=== PATIENT | male | born 1955 | race Caucasian/White ===

== ENCOUNTER → 2017-11-21 | Outpatient (CLI) | payer OTHER ==
--- NOTE | 2017-11-21 10:37 | PCVCIMAG ---
EXAM: AORTOILIAC DUPLEX INDICATION: Abdominal aortic aneurysm. FINDINGS: AORTA: Suprarenal aorta measures maximum diameter of 2.9 cm. There is a fusiform infrarenal aortic aneurysm. The infrarenal aorta measures maximum diameter of 2.6 x 2.9 cm. No aortic stenosis. RIGHT COMMON ILIAC ARTERY: Maximum diameter is 1.1 cm. No significant stenosis. RIGHT EXTERNAL ILIAC ARTERY: No significant stenosis. LEFT COMMON ILIAC ARTERY: Maximum diameter is 1.1 cm. No significant stenosis. LEFT EXTERNAL ILIAC ARTERY: No significant stenosis. IMPRESSION: 2.9 cm infrarenal abdominal aortic aneurysm. No aortoiliac stenosis. LOC:[id number]
== END | disposition home or self-care (01) ==
LOC: PCVCIMAG 15:56
PROVIDERS: ATTEND Internal Medicine Cardiovascular Disease
DX: I71.4 Abdominal aortic aneurysm, without rupture (principal); I73.9 Peripheral vascular disease, unspecified
CPT/HCPCS: 93978

== ENCOUNTER → 2017-12-07 | Outpatient (CLI) | payer OTHER ==
--- NOTE | 2017-12-08 14:33 | PCVCIMAG ---
APPROVED REPORT Study performed: 12/07/2017 11:34:58 Exam: Stress Echocardiogram Indication: CAD Patient Location: Echo lab Stress Nurse: Colleen Katz RN Room #: 2 Status: routine Ht: 6 ft 1 in HR: 73 bpm BP: 126/76 mmHg Rhythm: NSR Medical History Medical History: CAD non obstructive, Diabetes,JAMEL,HCL Cardiac Risk Factors: DM, HTN, Hyperlipidemia, FHX of CAD Previous Cardiac Procedures: none Pretest Chest Pain Characteristics: none Exercise History: Physically active Procedure The patient underwent an Exercise Stress Test using the Favian Protocol. Blood pressure, heart rate, and EKG were monitored. An Echocardiogram was performed by biology specimen technician in four stages in quad fashion. At peak stress, four selected images were obtained and placed side by side with resting images for comparison. Stress Test Details Stress Test: Exercise stress testing was performed using a Favian protocol. HR Resting HR: 81 bpmMax Heart Rate (APMHR): 157 bpm Max HR Achieved: 151 bpmTarget HR (85% APMHR): 133 bpm % of APMHR: 96 Recovery HR: 122 bpm HR response to stress: Normal HR response to stress BP Resting BP: 126/76 mmHg Max BP: 180/80 mmHg Recovery BP: 162/80 mmHg ECG Resting ECG: Sinus Rhythm Stress ECG: Sinus Rhythm ST Change: Non-ischemic Arrhythmia: Rare PVC Recovery ECG: Sinus Rhythm Recovery ST Change: Non-ischemic Recovery Arrhythmia: None Clinical Reason for Termination: Maximal effort Stress Symptoms: fatigue Exercise duration: 12 min 57 sec Highest Stage Achieved: Stage 5: 5.0 mph at 18% grade. Exercise capacity: 17.1 METs Overall Exercise Capacity for Age: Excellent Scale: Active Angina Score: None No complications. Stress ECG Conclusion The patient exercised according to the FAVIAN protocol for 12:57 mins; achieving a work level of 17.1 METS The resting heart rate of 75 bpm lisa to a maximum heart rate of 151 bpm. This value represent 96% of the maximal, age-predicted heart rate. The resting blood pressure of 126/76 mmHg, lisa to a maximum blood pressure of 180/80 mmHg. The exercise test was stopped due to fatigue. Pre-Stress Echo The resting Echocardiogram showed normal left ventricular contractility with an estimated Ejection Fraction of about 55-60%. Normal wall motion in all segments on baseline images. Post-Stress Echo The stress Echocardiogram showed normal left ventricular contractility with an estimated Ejection Fraction of about 65-70%. Normal augmentation of wall motion in all segments on post stress images. Clinical No clinical or ECG evidence for ischemia. Conclusion Clinical Response: Non-ischemic Exercise Capacity: Superior Stress ECG Response: Non-ischemic Stress Echo Images: Non-ischemic No clinical, EKG or echocardiographic evidence for ischemia. No echocardiographic evidence for exercise induced ischemia. Normal stress echocardiogram with maximal exercise stress. Moderately sclerotic aortic valve which appears to be bicuspid. Mildly reduced leaflet excursion is seen. Mild stenosis with a peak gradient of 16 mmHg and a mean gradient of 9mmHg. <Conclusion> No clinical, EKG or echocardiographic evidence for ischemia. No echocardiographic evidence for exercise induced ischemia. Normal stress echocardiogram with maximal exercise stress. Moderately sclerotic aortic valve which appears to be bicuspid. Mildly reduced leaflet excursion is seen. Mild stenosis with a peak gradient of 16 mmHg and a mean gradient of 9mmHg.
== END | disposition home or self-care (01) ==
LOC: PCVCIMAG 11:35
PROVIDERS: ATTEND Internal Medicine Cardiovascular Disease
DX: I25.10 Atherosclerotic heart disease of native coronary artery without angina pectoris (principal); G47.33 Obstructive sleep apnea (adult) (pediatric); I71.4 Abdominal aortic aneurysm, without rupture; E11.9 Type 2 diabetes mellitus without complications; R93.1 Abnormal findings on diagnostic imaging of heart and coronary circulation
CPT/HCPCS: 93325; 93351

== ENCOUNTER → 2019-01-09 | Outpatient (CLI) | payer OTHER ==
--- NOTE | 2019-01-09 11:40 | PCVCIMAG ---
APPROVED REPORT Study performed: 01/09/2019 08:54:53 EXAM: Comprehensive 2D, Doppler, and color-flow Echocardiogram Patient Location: Echo lab Room #: 2Status: routine BSA: 2.09 HR: 62 bpmBP: 146/84 mmHg Rhythm: NSR Other Information Study Quality: Good Risk Factors: Cardiac Risk Factors: Hyperlipidemia, DM Indications CAD Elevated coronary calcium score 2D Dimensions IVSd: 7.26 (7-11mm)LVOT Diam: 22.11 (18-24mm) LVDd: 51.74 mm PWd: 6.22 (7-11mm)Ascending Ao: 35.73 (22-36mm) LVDs: 31.20 (25-40mm) Left Atrium: 36.92 (27-40mm) Aortic Root: 26.34 mm LV Single Plane 4CH: 60.55 % LV Single Plane 2CH: 66.43 % Biplane EF: 63.7 % Volumes Left Atrial Volume (Systole) Single Plane 4CH: 54.54 mLSingle Plane 2CH: 44.83 mL Biplane LA Volume: 50.00 mLLA ESV Index: 24.00 mL/m2 Aortic Valve AoV Peak Néstor.: 2.18 m/s AO Peak Gr.: 19.01 mmHgLVOT Max P.21 mmHg AO Mean Gr.: 11.21 mmHgLVOT Mean P.13 mmHg AO V2 Mean: 1.60 m/sLVOT Max V: 0.99 m/s AO V2 VTI: 54.20 cmLVOT Mean V: 0.69 m/s KENNETH (VTI): 1.59 [id number] V1 VTI: 22.44 cm KENNETH Vmax: 1.74 cm2 AI Vmax: 3.42 m/sSV (LVOT): 86.11 mL AI Peñuelas: 2.11 m/s2 AI PHT: 470.21 ms Mitral Valve E/A Ratio: 1.0 MV Decel. Time: 144.61 ms MV E Max Néstor.: 0.81 m/s MV A Néstor.: 0.83 m/s IVRT: 72.66 ms TDI E/Lateral E': 9.00E/Medial E': 10.13 Medial E' Néstor.: 0.08 m/s Lateral E' Néstor.: 0.09 m/s Pulmonary Valve PV Peak Néstor.: 0.92 m/sPV Peak Gr.: 3.40 mmHg Pulmonary Vein P Vein S: 0.58 m/sP Vein A: 0.27 m/s P Vein D: 0.53 m/sP Vein A Dur.: 121.1 msec P Vein S/D Ratio: 1.09 Tricuspid Valve TR Peak Néstor.: 1.68 m/s TR Peak Gr.: 11.30 mmHg TV Vmax: 0.69 m/sPA Pressure: 18.00 mmHg Left Ventricle The left ventricle is normal size. There is normal LV segmental wall motion. There is normal left ventricular wall thickness. Left ventricular systolic function is normal. The left ventricular ejection fraction is within the normal range. LVEF is 60-65%. Right Ventricle The right ventricle is normal size. The right ventricular systolic function is normal. Atria The left atrium size is normal. The right atrium size is normal. Aortic Valve Aortic valve is trileaflet. Moderate aortic valve sclerosis. Mild aortic regurgitation. There is mild valvular aortic stenosis. Calculated aortic valve area is 1.6 cm2 with maximum pressure gradient of 19 mmHg and mean pressure gradient of 11 mmHg. Mitral Valve The mitral valve is normal in structure. There is no mitral valve regurgitation noted. No evidence of mitral valve stenosis. Tricuspid Valve The tricuspid valve is normal in structure. There is no tricuspid valve regurgitation noted. Pulmonic Valve The pulmonary valve is normal in structure. There is no pulmonic valvular regurgitation. Great Vessels The aortic root is normal in size. The ascending aorta is normal in size. Aortic arch is normal in caliber. IVC is normal in size and collapses >50% with inspiration. Pericardium There is no pericardial effusion. There is no pleural effusion. <Conclusion> The left ventricle is normal size. LVEF is 60-65%. The right ventricle is normal size. The left atrium size is normal. Aortic valve is trileaflet. Moderate aortic valve sclerosis. Mild aortic regurgitation. There is mild valvular aortic stenosis. Calculated aortic valve area is 1.6 cm2 with maximum pressure gradient of 19 mmHg and mean pressure gradient of 11 mmHg. There is no mitral valve regurgitation noted. The tricuspid valve is normal in structure. The aortic root is normal in size. There is no pericardial effusion.
--- NOTE | 2019-01-09 13:09 | PCVCIMAG ---
EXAM: AORTOILIAC DUPLEX INDICATION: Peripheral arterial disease FINDINGS: AORTA: Suprarenal aorta measures maximum diameter of 2.9 cm. There is not a fusiform infrarenal aortic aneurysm. The infrarenal aorta measures maximum diameter of 3.2 cm. No aortic stenosis. RIGHT COMMON ILIAC ARTERY: Maximum diameter is 1.1 cm. No significant stenosis. RIGHT EXTERNAL ILIAC ARTERY: No significant stenosis. LEFT COMMON ILIAC ARTERY: Maximum diameter is 1.0 cm. No significant stenosis. LEFT EXTERNAL ILIAC ARTERY: No significant stenosis. IMPRESSION: 3.2 cm infrarenal abdominal aortic aneurysm compares to 2.9 cm on November 2017 study. No significant aortoiliac stenosis. LOC:[id number]
== END | disposition home or self-care (01) ==
LOC: PCVCIMAG 07:55
PROVIDERS: ATTEND Internal Medicine Cardiovascular Disease
DX: I35.2 Nonrheumatic aortic (valve) stenosis with insufficiency (principal); I35.8 Other nonrheumatic aortic valve disorders; I25.10 Atherosclerotic heart disease of native coronary artery without angina pectoris; E78.00 Pure hypercholesterolemia, unspecified; R93.1 Abnormal findings on diagnostic imaging of heart and coronary circulation; G47.33 Obstructive sleep apnea (adult) (pediatric); I71.4 Abdominal aortic aneurysm, without rupture; I10 Essential (primary) hypertension; E11.9 Type 2 diabetes mellitus without complications
CPT/HCPCS: 93306; 93978